=== PATIENT | female | born 1970 | race Caucasian/White ===

== ENCOUNTER → 2018-04-07 | Outpatient (CLI) | payer BC ==
--- NOTE | 2018-04-08 11:01 | MM ---
Reason for exam: screening (asymptomatic). Last mammogram was performed 3 years and 9 months ago. History: Patient is postmenopausal. Took hormonal contraceptives for 5 years. Physical Findings: A clinical breast exam by your physician is recommended on an annual basis and results should be correlated with mammographic findings. MG Screening Mammo w CAD Bilateral CC and MLO view(s) were taken. Prior study comparison: July 12, 2014, bilateral MG screening mammo w CAD. The breast tissue is heterogeneously dense. This may lower the sensitivity of mammography. There is chronic nodularity bilaterally. No significant changes when compared with prior studies. ASSESSMENT: Benign, BI-RAD 2 RECOMMENDATION: Routine screening mammogram of both breasts in 1 year.
== END | disposition home or self-care (01) ==
LOC: RADMAMWWP 09:11
PROVIDERS: ATTEND Family Medicine
DX: Z12.31 Encounter for screening mammogram for malignant neoplasm of breast (principal)
CPT/HCPCS: 77067

== ENCOUNTER 2020-07-04 17:53 | Emergency (ER) | payer BC ==
[2020-07-04 17:59] VITALS: TEMP 98.5
[2020-07-04] MEDS ORDERED: methylPREDNISolone SOD SUCCI 125 MG/2 ML VIAL IM ONE (18:34)
[2020-07-04] MEDS ORDERED: ONDANSETRON ODT 4 MG TAB PO STA (18:35)
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
[2020-07-04 19:58] VITALS: BP 165/100; PULSE 67; RESP 18
== END 2020-07-04 19:57 | disposition home or self-care (01) ==
LOC: EC 17:53
DX: M54.32 Sciatica, left side (principal); M54.5 Low back pain; F17.200 Nicotine dependence, unspecified, uncomplicated; I25.2 Old myocardial infarction; F12.90 Cannabis use, unspecified, uncomplicated
CPT/HCPCS: 99283; J2930

== ENCOUNTER → 2021-05-23 | Outpatient (CLI) | payer BC ==
--- NOTE | 2021-05-23 09:11 | XR ---
EXAMINATION TYPE: XR cervical spine limited DATE OF EXAM: 05/23/2021 COMPARISON: None HISTORY: Neck pain TECHNIQUE: 3 views cervical spine FINDINGS: Occiput partially obscures the tip of the odontoid. The prevertebral space is normal. Poste rior spinal lamellar line is intact. There is posterior disc space narrowing L4-5 is disc space narro wing C5-6 C6-7. Tiny anterior vertebral body spurs are present at the inferior anterior C5 and C6 lev els. IMPRESSION: 1. Minimal degenerative changes through the mid cervical spine. 2. MRI could be performed if additional evaluation would be of benefit.
== END | disposition home or self-care (01) ==
LOC: RADXRMAIN 08:33
PROVIDERS: ATTEND Family Medicine
DX: M50.320 Other cervical disc degeneration, mid-cervical region, unspecified level (principal)
CPT/HCPCS: 72040